=== PATIENT | male | born 1935 | race Caucasian/White ===

== ENCOUNTER 2021-06-13 20:40 | Inpatient (IN) ==
[2021-06-13] MEDS ORDERED: 0.9 % Sodium Chloride 1,000 ML IVC ONE (23:06)
[2021-06-13 23:33] LABS: Basophils % 0.2 %; Eosinophils % 0.2 %; Hemoglobin 11.9 g/dL (12.9-16.9); Immature Granulocytes % 0.5 % (0-4); Lymphocytes # 1.4 K/mcL (0.6-4.6); Lymphocytes % 10.5 %; Mean Corpuscular Hemoglobin 30.7 pg (28.0-33.3); Mean Corpuscular Volume 90.4 fL (83.0-100.0); Mean Platelet Volume 9.1 fL (9.4-12.4); Monocytes % 30.9 %; Neutrophils # 7.4 K/mcL (1.6-8.9); Platelet Count 213 K/mcL (140-400); Red Blood Count 3.87 M/mcL (4.19-5.50); Red Cell Distribution Width 13.2 % (11.5-14.5); Segmented Neutrophils % 57.7 %; White Blood Count 12.9 K/mcL (4.3-11.1)
[2021-06-13 23:35] LABS: Bilirubin,Urine Negative (Negative); Blood,Urine Large (Negative); Clarity,Urine Clear (Clear); Color,Urine Yellow (Yellow); Glucose,Urine (UA) Normal (Normal); Ketones,Urine Negative (Negative); Leukocyte Esterase,Urine Large (Negative); Nitrite,Urine Positive (Negative); Protein,Urine 100 mg/dL (Neg-Trace); Specific Gravity,Urine 1.015 (1.010-1.025); Urobilinogen,Urine Normal (Normal)
[2021-06-13 23:42] LABS: RBC,Urine TNTC per hpf (0-3); WBC,Urine TNTC per hpf (0-3)
[2021-06-13 23:43] LABS: Bacteria,Urine Present per hpf (None-Few)
[2021-06-13 23:52] LABS: Alanine Aminotransferase 49 Units/L (7-52); Albumin 3.4 g/dL (3.5-5.7); Albumin/Globulin Ratio 1.1 (1.1-2.2); Alkaline Phosphatase 54 Units/L (34-104); Aspartate Amino Transferase 43 Units/L (13-39); BUN/Creatinine Ratio 22 (6-26); Bilirubin,Direct 0.1 mg/dL (0.0-0.2); Bilirubin,Indirect 0.4 mg/dL (0.0-1.0); Bilirubin,Total 0.5 mg/dL (0.3-1.0); Blood Urea Nitrogen 27 mg/dL (8-23); Calcium 8.5 mg/dL (8.6-10.3); Carbon Dioxide 24 mEq/L (23-29); Chloride 100 mEq/L (98-107); Globulin 3.1 g/dL (2.4-3.5); Glucose 131 mg/dL (70-105); Osmolality,Calculated 283 (280-300); Potassium 3.8 mEq/L (3.5-5.1); Sodium 133 mEq/L (136-145); Total Protein 6.5 g/dL (6.4-8.9); Troponin I 0.03 ng/mL (< 0.04); eGFR For African Americans > 60 (> 60); eGFR For Non-African Americans 55 (> 60)
[2021-06-14 00:50] LABS: Platelet Estimate Normal (Normal)
[2021-06-14] MEDS ORDERED: Ondansetron 4 MG/2 ML VIAL IVP PRN (03:33)
[2021-06-14] MEDS ORDERED: Naloxone 0.4 MG/ML INJ IVP PRN (03:33)
[2021-06-14] MEDS: 0.9 % Sodium Chloride 1,000 ML IVC SCH ×2 (04:18→13:29)
[2021-06-14] MEDS: amLODIPine 5 MG TABLET PO SCH (08:56)
[2021-06-14] MEDS: lisinopriL 20 MG TABLET PO SCH ×2 (08:56→21:03)
[2021-06-14] MEDS: Acetaminophen 325 MG TABLET PO PRN (17:49)
[2021-06-14] MEDS: Melatonin 3 MG TABLET PO SCH (21:04)
[2021-06-15 07:38] LABS: Basophils % 0.3 %; Eosinophils # 0.1 K/mcL (0.0-0.6); Hematocrit 32.3 % (37.5-50.1); Hemoglobin 10.9 g/dL (12.9-16.9); Immature Granulocytes % 0.5 % (0-4); Lymphocytes # 1.5 K/mcL (0.6-4.6); Lymphocytes % 15.7 %; Mean Corpuscular HGB Conc 33.7 g/dL (31.6-35.5); Mean Corpuscular Hemoglobin 30.6 pg (28.0-33.3); Mean Corpuscular Volume 90.7 fL (83.0-100.0); Mean Platelet Volume 9.6 fL (9.4-12.4); Monocytes # 2.5 K/mcL (0.0-1.3); Monocytes % 24.9 %; Neutrophils # 5.7 K/mcL (1.6-8.9); Platelet Count 223 K/mcL (140-400); Red Blood Count 3.56 M/mcL (4.19-5.50); Red Cell Distribution Width 13.2 % (11.5-14.5); Segmented Neutrophils % 57.6 %; White Blood Count 9.8 K/mcL (4.3-11.1)
[2021-06-15] MEDS: lisinopriL 20 MG TABLET PO SCH ×2 (07:44→20:01)
[2021-06-15] MEDS: amLODIPine 5 MG TABLET PO SCH (07:44)
[2021-06-15 07:47] LABS: BUN/Creatinine Ratio 19 (6-26); Blood Urea Nitrogen 16 mg/dL (8-23); Calcium 7.9 mg/dL (8.6-10.3); Carbon Dioxide 22 mEq/L (23-29); Chloride 107 mEq/L (98-107); Glucose 100 mg/dL (70-105); Osmolality,Calculated 287 (280-300); Potassium 3.4 mEq/L (3.5-5.1); Sodium 138 mEq/L (136-145); eGFR For African Americans > 60 (> 60); eGFR For Non-African Americans > 60 (> 60)
[2021-06-15] MEDS: Acetaminophen 325 MG TABLET PO PRN (07:58)
[2021-06-15 08:30] LABS: Platelet Estimate Normal (Normal)
[2021-06-15] MEDS: Melatonin 3 MG TABLET PO SCH (20:01)
[2021-06-16 07:51] LABS: Eosinophils # 0.2 K/mcL (0.0-0.6); Hematocrit 32.4 % (37.5-50.1); Mean Corpuscular Hemoglobin 30.4 pg (28.0-33.3); Mean Corpuscular Volume 89.5 fL (83.0-100.0); Mean Platelet Volume 9.3 fL (9.4-12.4); Platelet Count 247 K/mcL (140-400); Red Blood Count 3.62 M/mcL (4.19-5.50); Red Cell Distribution Width 13.1 % (11.5-14.5); White Blood Count 7.5 K/mcL (4.3-11.1)
[2021-06-16] MEDS: amLODIPine 5 MG TABLET PO SCH (07:53)
[2021-06-16] MEDS: lisinopriL 20 MG TABLET PO SCH (07:53)
[2021-06-16 08:12] LABS: BUN/Creatinine Ratio 18 (6-26); Blood Urea Nitrogen 14 mg/dL (8-23); Calcium 8.4 mg/dL (8.6-10.3); Carbon Dioxide 24 mEq/L (23-29); Chloride 107 mEq/L (98-107); Glucose 93 mg/dL (70-105); Osmolality,Calculated 290 (280-300); Potassium 3.7 mEq/L (3.5-5.1); Sodium 140 mEq/L (136-145); eGFR For African Americans > 60 (> 60); eGFR For Non-African Americans > 60 (> 60)
[2021-06-16 09:32] LABS: Basophils # 0.2 K/mcL (0.0-0.2); Lymphocytes # 1.2 K/mcL (0.6-4.6); Monocytes # 1.1 K/mcL (0.0-1.3); Platelet Estimate Normal (Normal)
[2021-06-16 11:04] VITALS: BP 109/57; PULSE 65; RESP 18; TEMP 98.3; O2SAT 97
== END 2021-06-16 14:50 | disposition home or self-care (01) | DRG 700 ==
LOC: INPPIK 20:40 → EMEROOPIK 20:40 → INPPIK 06-14 02:55
PROVIDERS: ADMIT Family Medicine; ATTEND Family Medicine

== ENCOUNTER 2021-07-04 10:15 | Inpatient (IN) ==
[2021-07-04] MEDS ORDERED: Ondansetron ODT 4 MG TAB.RAPDIS SL PRN (16:44)
[2021-07-04] MEDS ORDERED: Acetaminophen 325 MG TABLET PO PRN (16:44)
[2021-07-04] MEDS ORDERED: Warfarin perPT PO PRN (18:00)
[2021-07-04] MEDS ORDERED: *HR* Warfarin 2.5 MG TABLET PO ONE (18:00)
[2021-07-04] MEDS: Cholecalciferol (D-3) 1,000 UNIT (25MCG) TABLET PO SCH (21:59)
[2021-07-04] MEDS: Ascorbic Acid 500 MG TABLET PO SCH (22:00)
[2021-07-04] MEDS: Melatonin 3 MG TABLET PO SCH (22:02)
[2021-07-05 07:56] LABS: Basophils % 0.3 %; Eosinophils # 0.1 K/mcL (0.0-0.6); Hematocrit 27.9 % (37.5-50.1); Hemoglobin 9.3 g/dL (12.9-16.9); Immature Granulocytes % 0.7 % (0-4); Lymphocytes # 1.3 K/mcL (0.6-4.6); Lymphocytes % 19.3 %; Mean Corpuscular HGB Conc 33.3 g/dL (31.6-35.5); Mean Corpuscular Hemoglobin 30.4 pg (28.0-33.3); Mean Corpuscular Volume 91.2 fL (83.0-100.0); Mean Platelet Volume 9.7 fL (9.4-12.4); Monocytes # 1.4 K/mcL (0.0-1.3); Monocytes % 19.9 %; Platelet Count 228 K/mcL (140-400); Red Blood Count 3.06 M/mcL (4.19-5.50); Red Cell Distribution Width 14.5 % (11.5-14.5); Segmented Neutrophils % 58.8 %; White Blood Count 6.9 K/mcL (4.3-11.1)
[2021-07-05 08:11] LABS: BUN/Creatinine Ratio 18 (6-26); Blood Urea Nitrogen 15 mg/dL (8-23); Calcium 8.1 mg/dL (8.6-10.3); Carbon Dioxide 28 mEq/L (23-29); Chloride 107 mEq/L (98-107); Glucose 98 mg/dL (70-105); Osmolality,Calculated 295 (280-300); Potassium 3.5 mEq/L (3.5-5.1); Sodium 142 mEq/L (136-145); eGFR For African Americans > 60 (> 60); eGFR For Non-African Americans > 60 (> 60)
[2021-07-05] MEDS: amLODIPine 5 MG TABLET PO SCH (08:19)
[2021-07-05] MEDS: Aspirin Enteric Coated 81 MG Tablet PO SCH (08:19)
[2021-07-05] MEDS: Ascorbic Acid 500 MG TABLET PO SCH ×2 (08:19→21:53)
[2021-07-05] MEDS: UBIDECARENONE 100 MG PO SCH (08:20)
[2021-07-05] MEDS: Cholecalciferol (D-3) 1,000 UNIT (25MCG) TABLET PO SCH ×2 (08:20→21:53)
[2021-07-05] MEDS: VIT E PO SCH (08:20)
[2021-07-05] MEDS: LUTEIN PO SCH (08:20)
[2021-07-05] MEDS: levoFLOXacin 750 MG TABLET PO SCH (08:20)
[2021-07-05] MEDS: lisinopriL 20 MG TABLET PO SCH (08:20)
[2021-07-05] MEDS: VIT C PO SCH (08:20)
[2021-07-05] MEDS: OMEGA PO SCH (08:20)
[2021-07-05 08:25] LABS: INR 1.2; Prothrombin Time 13.4 Seconds (9.4-12.1)
[2021-07-05 09:32] LABS: Platelet Estimate Normal (Normal)
[2021-07-05] MEDS: Multivit/Ca/Min/Fe/FA 1 TAB TABLET PO SCH (11:55)
[2021-07-05] MEDS ORDERED: *HR* Heparin 5,000 UNIT/ML VIAL IVP ONE (17:31)
[2021-07-05] MEDS ORDERED: *HR* Heparin 5,000 UNIT/ML VIAL IVP PRN ×2 (17:31)
[2021-07-05] MEDS ORDERED: Heparin 25,000UNIT/250ML 1/2NS 25,000 UNIT/250 ML IV.SOLN IVC SCH (17:45)
[2021-07-05] MEDS ORDERED: *HR* Warfarin 3 MG TABLET PO ONE (18:00)
[2021-07-05 18:10] LABS: Hematocrit 30.7 % (37.5-50.1); Hemoglobin 10.2 g/dL (12.9-16.9); Mean Corpuscular HGB Conc 33.2 g/dL (31.6-35.5); Mean Corpuscular Hemoglobin 30.4 pg (28.0-33.3); Mean Corpuscular Volume 91.6 fL (83.0-100.0); Mean Platelet Volume 9.4 fL (9.4-12.4); Platelet Count 261 K/mcL (140-400); Red Blood Count 3.35 M/mcL (4.19-5.50); Red Cell Distribution Width 14.3 % (11.5-14.5); White Blood Count 7.4 K/mcL (4.3-11.1)
[2021-07-05 18:24] LABS: Heparin anti-factor XA UFH < 0.04 IU/mL (0.30-0.70)
[2021-07-05 18:25] LABS: INR 1.1; Prothrombin Time 12.7 Seconds (9.4-12.1)
[2021-07-05] MEDS: Melatonin 3 MG TABLET PO SCH (21:53)
[2021-07-05] MEDS: *HR* Heparin 5,000 UNIT/ML VIAL SQ SCH (21:57)
[2021-07-06] MEDS: *HR* Heparin 5,000 UNIT/ML VIAL SQ SCH ×3 (05:31→21:47)
[2021-07-06 07:47] LABS: Basophils % 0.5 %; Eosinophils # 0.1 K/mcL (0.0-0.6); Eosinophils % 1.2 %; Hematocrit 29.8 % (37.5-50.1); Hemoglobin 9.8 g/dL (12.9-16.9); Immature Granulocytes % 0.9 % (0-4); Lymphocytes # 1.3 K/mcL (0.6-4.6); Lymphocytes % 20.2 %; Mean Corpuscular HGB Conc 32.9 g/dL (31.6-35.5); Mean Corpuscular Hemoglobin 30.1 pg (28.0-33.3); Mean Corpuscular Volume 91.4 fL (83.0-100.0); Mean Platelet Volume 9.5 fL (9.4-12.4); Monocytes # 1.2 K/mcL (0.0-1.3); Monocytes % 17.9 %; Neutrophils # 3.9 K/mcL (1.6-8.9); Platelet Count 266 K/mcL (140-400); Red Blood Count 3.26 M/mcL (4.19-5.50); Red Cell Distribution Width 14.4 % (11.5-14.5); Segmented Neutrophils % 59.3 %; White Blood Count 6.5 K/mcL (4.3-11.1)
[2021-07-06 07:58] LABS: INR 1.2; Prothrombin Time 13.4 Seconds (9.4-12.1)
[2021-07-06 08:05] LABS: BUN/Creatinine Ratio 17 (6-26); Blood Urea Nitrogen 15 mg/dL (8-23); Calcium 8.3 mg/dL (8.6-10.3); Carbon Dioxide 28 mEq/L (23-29); Chloride 107 mEq/L (98-107); Glucose 102 mg/dL (70-105); Osmolality,Calculated 295 (280-300); Potassium 3.7 mEq/L (3.5-5.1); Sodium 142 mEq/L (136-145); eGFR For African Americans > 60 (> 60); eGFR For Non-African Americans > 60 (> 60)
[2021-07-06] MEDS: Ascorbic Acid 500 MG TABLET PO SCH ×2 (08:59→21:31)
[2021-07-06] MEDS: levoFLOXacin 750 MG TABLET PO SCH (08:59)
[2021-07-06] MEDS: amLODIPine 5 MG TABLET PO SCH (09:00)
[2021-07-06] MEDS: UBIDECARENONE 100 MG PO SCH (09:00)
[2021-07-06] MEDS: OMEGA PO SCH (09:00)
[2021-07-06] MEDS: Cholecalciferol (D-3) 1,000 UNIT (25MCG) TABLET PO SCH ×2 (09:00→21:30)
[2021-07-06] MEDS: lisinopriL 20 MG TABLET PO SCH (09:00)
[2021-07-06] MEDS: Aspirin Enteric Coated 81 MG Tablet PO SCH (09:00)
[2021-07-06] MEDS: LUTEIN PO SCH (09:00)
[2021-07-06] MEDS: VIT C PO SCH (09:00)
[2021-07-06] MEDS: VIT E PO SCH (09:00)
[2021-07-06] MEDS: Multivit/Ca/Min/Fe/FA 1 TAB TABLET PO SCH (12:02)
[2021-07-06] MEDS ORDERED: *HR* Warfarin 7.5 MG TABLET PO ONE (18:00)
[2021-07-06] MEDS: Melatonin 3 MG TABLET PO SCH (21:30)
[2021-07-07] MEDS: *HR* Heparin 5,000 UNIT/ML VIAL SQ SCH ×3 (06:06→21:46)
[2021-07-07 07:34] LABS: INR 1.3; Prothrombin Time 14.7 Seconds (9.4-12.1)
[2021-07-07] MEDS: Ascorbic Acid 500 MG TABLET PO SCH ×2 (08:12→21:37)
[2021-07-07] MEDS: amLODIPine 5 MG TABLET PO SCH (08:12)
[2021-07-07] MEDS: lisinopriL 20 MG TABLET PO SCH (08:12)
[2021-07-07] MEDS: levoFLOXacin 750 MG TABLET PO SCH (08:12)
[2021-07-07] MEDS: Cholecalciferol (D-3) 1,000 UNIT (25MCG) TABLET PO SCH ×2 (08:12→21:37)
[2021-07-07] MEDS: Aspirin Enteric Coated 81 MG Tablet PO SCH (08:12)
[2021-07-07] MEDS: VIT E PO SCH (08:14)
[2021-07-07] MEDS: OMEGA PO SCH (08:14)
[2021-07-07] MEDS: UBIDECARENONE 100 MG PO SCH (08:14)
[2021-07-07] MEDS: LUTEIN PO SCH (08:14)
[2021-07-07] MEDS: VIT C PO SCH (08:14)
[2021-07-07] MEDS: Hyoscyamine SL 0.125 MG TAB.SUBL SL SCH ×3 (12:14→21:37)
[2021-07-07] MEDS: Multivit/Ca/Min/Fe/FA 1 TAB TABLET PO SCH (12:30)
[2021-07-07] MEDS ORDERED: *HR* Warfarin 7.5 MG TABLET PO ONE (18:00)
[2021-07-07] MEDS: Melatonin 3 MG TABLET PO SCH (21:38)
[2021-07-08] MEDS: *HR* Heparin 5,000 UNIT/ML VIAL SQ SCH ×2 (06:18→13:00)
[2021-07-08] MEDS: Aspirin Enteric Coated 81 MG Tablet PO SCH (08:12)
[2021-07-08] MEDS: amLODIPine 5 MG TABLET PO SCH (08:12)
[2021-07-08] MEDS: levoFLOXacin 750 MG TABLET PO SCH (08:13)
[2021-07-08] MEDS: Ascorbic Acid 500 MG TABLET PO SCH ×2 (08:13→19:45)
[2021-07-08] MEDS: Hyoscyamine SL 0.125 MG TAB.SUBL SL SCH ×3 (08:14→19:45)
[2021-07-08] MEDS: lisinopriL 20 MG TABLET PO SCH (08:14)
[2021-07-08] MEDS: Cholecalciferol (D-3) 1,000 UNIT (25MCG) TABLET PO SCH ×2 (08:14→19:46)
[2021-07-08] MEDS: UBIDECARENONE 100 MG PO SCH (08:18)
[2021-07-08] MEDS: OMEGA PO SCH (08:18)
[2021-07-08] MEDS: VIT C PO SCH (08:18)
[2021-07-08] MEDS: VIT E PO SCH (08:18)
[2021-07-08] MEDS: LUTEIN PO SCH (08:18)
[2021-07-08 08:20] LABS: INR 1.4; Prothrombin Time 15.7 Seconds (9.4-12.1)
[2021-07-08 08:24] LABS: Hemoglobin 10.1 g/dL (12.9-16.9); Mean Corpuscular HGB Conc 32.6 g/dL (31.6-35.5); Mean Corpuscular Hemoglobin 29.8 pg (28.0-33.3); Mean Corpuscular Volume 91.4 fL (83.0-100.0); Mean Platelet Volume 9.6 fL (9.4-12.4); Platelet Count 295 K/mcL (140-400); Red Blood Count 3.39 M/mcL (4.19-5.50); Red Cell Distribution Width 14.5 % (11.5-14.5); White Blood Count 5.7 K/mcL (4.3-11.1)
[2021-07-08 08:33] LABS: BUN/Creatinine Ratio 17 (6-26); Blood Urea Nitrogen 15 mg/dL (8-23); Calcium 8.4 mg/dL (8.6-10.3); Carbon Dioxide 28 mEq/L (23-29); Chloride 106 mEq/L (98-107); Glucose 97 mg/dL (70-105); Osmolality,Calculated 291 (280-300); Potassium 3.5 mEq/L (3.5-5.1); Sodium 140 mEq/L (136-145); eGFR For African Americans > 60 (> 60); eGFR For Non-African Americans > 60 (> 60)
[2021-07-08] MEDS: Multivit/Ca/Min/Fe/FA 1 TAB TABLET PO SCH (13:00)
[2021-07-08] MEDS ORDERED: *HR* Warfarin 7.5 MG TABLET PO ONE (18:00)
[2021-07-08] MEDS: Apixaban 5 MG TABLET PO SCH (19:45)
[2021-07-08] MEDS: Melatonin 3 MG TABLET PO SCH (22:00)
[2021-07-09 07:45] LABS: INR 1.5; Prothrombin Time 16.7 Seconds (9.4-12.1)
[2021-07-09] MEDS: Aspirin Enteric Coated 81 MG Tablet PO SCH (08:35)
[2021-07-09] MEDS: Ascorbic Acid 500 MG TABLET PO SCH ×2 (08:35→20:12)
[2021-07-09] MEDS: lisinopriL 20 MG TABLET PO SCH (08:35)
[2021-07-09] MEDS: UBIDECARENONE 100 MG PO SCH (08:36)
[2021-07-09] MEDS: OMEGA PO SCH (08:36)
[2021-07-09] MEDS: VIT C PO SCH (08:36)
[2021-07-09] MEDS: VIT E PO SCH (08:36)
[2021-07-09] MEDS: amLODIPine 5 MG TABLET PO SCH (08:36)
[2021-07-09] MEDS: Hyoscyamine SL 0.125 MG TAB.SUBL SL SCH ×3 (08:36→20:12)
[2021-07-09] MEDS: Cholecalciferol (D-3) 1,000 UNIT (25MCG) TABLET PO SCH ×2 (08:36→20:13)
[2021-07-09] MEDS: LUTEIN PO SCH (08:36)
[2021-07-09] MEDS: Apixaban 5 MG TABLET PO SCH ×2 (08:36→21:51)
[2021-07-09] MEDS: levoFLOXacin 750 MG TABLET PO SCH (08:36)
[2021-07-09] MEDS: Docusate Oral Soln 100 MG/10 ML UDC PO SCH (09:55)
[2021-07-09] MEDS: Multivit/Ca/Min/Fe/FA 1 TAB TABLET PO SCH (11:54)
[2021-07-09 19:13] VITALS: O2SAT 97
[2021-07-09] MEDS: Melatonin 3 MG TABLET PO SCH (21:45)
[2021-07-10] MEDS: Docusate Oral Soln 100 MG/10 ML UDC PO SCH (08:14)
[2021-07-10] MEDS: Apixaban 5 MG TABLET PO SCH (08:14)
[2021-07-10] MEDS: amLODIPine 5 MG TABLET PO SCH (08:15)
[2021-07-10] MEDS: Hyoscyamine SL 0.125 MG TAB.SUBL SL SCH (08:15)
[2021-07-10] MEDS: Aspirin Enteric Coated 81 MG Tablet PO SCH (08:15)
[2021-07-10] MEDS: levoFLOXacin 750 MG TABLET PO SCH (08:15)
[2021-07-10] MEDS: UBIDECARENONE 100 MG PO SCH (08:15)
[2021-07-10] MEDS: Ascorbic Acid 500 MG TABLET PO SCH (08:15)
[2021-07-10] MEDS: lisinopriL 20 MG TABLET PO SCH (08:15)
[2021-07-10] MEDS: Cholecalciferol (D-3) 1,000 UNIT (25MCG) TABLET PO SCH (08:15)
[2021-07-10] MEDS: VIT C PO SCH (08:16)
[2021-07-10] MEDS: LUTEIN PO SCH (08:16)
[2021-07-10] MEDS: VIT E PO SCH (08:16)
[2021-07-10] MEDS: OMEGA PO SCH (08:16)
[2021-07-10 09:22] VITALS: BP 146/78; PULSE 74; RESP 18; TEMP 97.7
== END 2021-07-10 12:35 | disposition home health service (06) | DRG 945 ==
LOC: INPPIK 16:37
PROVIDERS: ADMIT Family Medicine; ATTEND Family Medicine

== ENCOUNTER 2022-08-03 19:09 | Inpatient (IN) ==
[2022-08-03] MEDS ORDERED: 0.9 % Sodium Chloride 1,000 ML IV ONE (19:25)
[2022-08-03 19:39] LABS: Bilirubin,Urine Negative (Negative); Blood,Urine Moderate (Negative); Clarity,Urine Slightly Cloudy (Clear); Color,Urine Yellow (Yellow); Glucose,Urine (UA) Normal (Normal); Ketones,Urine Negative (Negative); Leukocyte Esterase,Urine Moderate (Negative); Nitrite,Urine Negative (Negative); Protein,Urine 30 mg/dL (Neg-Trace); Specific Gravity,Urine 1.025 (1.010-1.025); Urobilinogen,Urine Normal (Normal)
[2022-08-03 19:50] LABS: RBC,Urine 30-50 per hpf (0-3)
[2022-08-03 19:51] LABS: Bacteria,Urine Moderate per hpf (None-Few); Mucus,Urine Few per lpf (None-Few); Squamous Epithelial Cell,Urine Few per hpf (None-Few); WBC,Urine TNTC per hpf (0-3)
[2022-08-03 19:52] LABS: Hyaline Casts,Urine Few per lpf (None Seen)
[2022-08-03] MEDS ORDERED: levoFLOXacin 750 MG/150 ML 750 MG/150 ML BAG IVPB STA (19:54)
[2022-08-03 19:57] LABS: Basophils % 0.2 %; Eosinophils % 0.1 %; Hematocrit 38.9 % (37.5-50.1); Hemoglobin 12.8 g/dL (12.9-16.9); Immature Granulocytes % 0.4 % (0-4); Lymphocytes # 0.9 K/mcL (0.6-4.6); Lymphocytes % 6.7 %; Mean Corpuscular HGB Conc 32.9 g/dL (31.6-35.5); Mean Corpuscular Volume 91.1 fL (83.0-100.0); Mean Platelet Volume 9.7 fL (9.4-12.4); Monocytes # 4.5 K/mcL (0.0-1.3); Neutrophils # 8.4 K/mcL (1.6-8.9); Platelet Count 139 K/mcL (140-400); Red Blood Count 4.27 M/mcL (4.19-5.50); Red Cell Distribution Width 14.6 % (11.5-14.5); Segmented Neutrophils % 60.6 %; White Blood Count 13.9 K/mcL (4.3-11.1)
[2022-08-03 20:06] LABS: INR 1.4; Prothrombin Time 15.6 Seconds (9.4-12.1)
[2022-08-03 20:08] LABS: Activated Partial Thrombo Time 35.2 Seconds (26.0-36.0)
[2022-08-03 20:13] LABS: Albumin 4.1 g/dL (3.5-5.7); Albumin/Globulin Ratio 1.1 (1.1-2.2); Bilirubin,Total 0.7 mg/dL (0.3-1.0); Calcium 9.2 mg/dL (8.6-10.3); Globulin 3.7 g/dL (2.4-3.5); Magnesium 1.5 mg/dL (1.6-2.6); Phosphorous 1.8 mg/dL (2.7-4.5); Potassium 3.6 mEq/L (3.5-5.1); Total Protein 7.8 g/dL (6.4-8.9)
[2022-08-03 20:17] LABS: Troponin I 0.03 ng/mL (< 0.04)
[2022-08-03] MEDS ORDERED: Naloxone 0.4 MG/ML INJ IVP PRN (21:48)
[2022-08-03] MEDS ORDERED: Ondansetron 4 MG/2 ML VIAL IVP PRN (21:48)
[2022-08-03] MEDS: Acetaminophen 325 MG TABLET PO PRN (22:30)
[2022-08-03] MEDS: *HR* Ticagrelor 90 MG TABLET PO SCH (23:43)
[2022-08-04 08:00] LABS: Basophils % 0.2 %; Eosinophils % 0.1 %; Hematocrit 34.2 % (37.5-50.1); Hemoglobin 11.1 g/dL (12.9-16.9); Immature Granulocytes % 0.3 % (0-4); Lymphocytes # 1.3 K/mcL (0.6-4.6); Mean Corpuscular HGB Conc 32.5 g/dL (31.6-35.5); Mean Corpuscular Hemoglobin 29.8 pg (28.0-33.3); Mean Corpuscular Volume 91.7 fL (83.0-100.0); Mean Platelet Volume 9.7 fL (9.4-12.4); Monocytes % 43.3 %; Neutrophils # 6.1 K/mcL (1.6-8.9); Platelet Count 126 K/mcL (140-400); Red Blood Count 3.73 M/mcL (4.19-5.50); Red Cell Distribution Width 14.6 % (11.5-14.5); Segmented Neutrophils % 46.1 %; White Blood Count 13.3 K/mcL (4.3-11.1)
[2022-08-04 08:10] LABS: Monocytes # 5.8 K/mcL (0.0-1.3)
[2022-08-04 08:20] LABS: Calcium 8.5 mg/dL (8.6-10.3); Magnesium 1.8 mg/dL (1.6-2.6); Phosphorous 1.9 mg/dL (2.7-4.5); Potassium 3.7 mEq/L (3.5-5.1)
[2022-08-04] MEDS: Acetaminophen 325 MG TABLET PO PRN ×2 (08:29→18:16)
[2022-08-04] MEDS: amLODIPine 5 MG TABLET PO SCH (08:30)
[2022-08-04] MEDS: Nitrofurantoin (BID) 100 MG CAPSULE PO SCH ×2 (08:30→16:38)
[2022-08-04] MEDS: Loratadine 10 MG TABLET PO SCH (08:30)
[2022-08-04] MEDS: Apixaban 5 MG TABLET PO SCH ×2 (08:30→20:25)
[2022-08-04] MEDS: *HR* Ticagrelor 90 MG TABLET PO SCH ×2 (08:30→20:24)
[2022-08-04] MEDS: Ascorbic Acid 500 MG TABLET PO SCH ×2 (17:54→20:25)
[2022-08-04] MEDS: Multivit/Ca/Min/Fe/FA 1 TAB TABLET PO SCH (17:54)
[2022-08-04] MEDS: Cholecalciferol (D-3) 1,000 UNIT (25MCG) TABLET PO SCH ×2 (17:55→20:25)
[2022-08-04] MEDS: Melatonin 3 MG TABLET PO PRN (20:25)
[2022-08-04] MEDS ORDERED: levoFLOXacin 750 MG/150 ML 750 MG/150 ML BAG IVPB SCH (21:00)
[2022-08-05 07:08] LABS: Basophils % 0.3 %; Eosinophils # 0.1 K/mcL (0.0-0.6); Eosinophils % 0.7 %; Hematocrit 35.9 % (37.5-50.1); Hemoglobin 11.6 g/dL (12.9-16.9); Immature Granulocytes % 1.1 % (0-4); Lymphocytes # 1.6 K/mcL (0.6-4.6); Lymphocytes % 10.7 %; Mean Corpuscular HGB Conc 32.3 g/dL (31.6-35.5); Mean Corpuscular Hemoglobin 29.5 pg (28.0-33.3); Mean Corpuscular Volume 91.3 fL (83.0-100.0); Mean Platelet Volume 10.1 fL (9.4-12.4); Monocytes # 4.6 K/mcL (0.0-1.3); Monocytes % 31.5 %; Neutrophils # 8.1 K/mcL (1.6-8.9); Platelet Count 126 K/mcL (140-400); Red Blood Count 3.93 M/mcL (4.19-5.50); Red Cell Distribution Width 14.5 % (11.5-14.5); Segmented Neutrophils % 55.7 %; White Blood Count 14.5 K/mcL (4.3-11.1)
[2022-08-05 07:30] LABS: Calcium 8.8 mg/dL (8.6-10.3); Magnesium 1.8 mg/dL (1.6-2.6); Potassium 3.2 mEq/L (3.5-5.1)
[2022-08-05 08:55] LABS: Platelet Estimate Slight Decrease (Normal)
[2022-08-05] MEDS: Acetaminophen 325 MG TABLET PO PRN (09:08)
[2022-08-05] MEDS: amLODIPine 5 MG TABLET PO SCH (09:08)
[2022-08-05] MEDS: Cholecalciferol (D-3) 1,000 UNIT (25MCG) TABLET PO SCH ×2 (09:09→21:02)
[2022-08-05] MEDS: *HR* Ticagrelor 90 MG TABLET PO SCH ×2 (09:09→21:02)
[2022-08-05] MEDS: Ascorbic Acid 500 MG TABLET PO SCH ×2 (09:09→21:01)
[2022-08-05] MEDS: Nitrofurantoin (BID) 100 MG CAPSULE PO SCH ×2 (09:09→17:29)
[2022-08-05] MEDS: Multivit/Ca/Min/Fe/FA 1 TAB TABLET PO SCH (09:10)
[2022-08-05] MEDS: UBIDECARENONE 100 MG PO SCH (09:10)
[2022-08-05] MEDS: Apixaban 5 MG TABLET PO SCH ×2 (09:10→21:02)
[2022-08-05] MEDS: Loratadine 10 MG TABLET PO SCH (09:10)
[2022-08-05] MEDS ORDERED: levoFLOXacin 750 MG/150 ML 750 MG/150 ML BAG IVPB SCH (21:00)
[2022-08-05] MEDS: Melatonin 3 MG TABLET PO PRN (21:00)
[2022-08-06] MEDS: Acetaminophen 325 MG TABLET PO PRN (01:05)
[2022-08-06 07:50] LABS: Basophils % 0.2 %; Eosinophils # 0.1 K/mcL (0.0-0.6); Eosinophils % 1.4 %; Hematocrit 33.3 % (37.5-50.1); Hemoglobin 10.9 g/dL (12.9-16.9); Immature Granulocytes % 0.8 % (0-4); Lymphocytes # 1.1 K/mcL (0.6-4.6); Lymphocytes % 12.4 %; Mean Corpuscular HGB Conc 32.7 g/dL (31.6-35.5); Mean Corpuscular Hemoglobin 29.8 pg (28.0-33.3); Monocytes # 2.5 K/mcL (0.0-1.3); Monocytes % 29.5 %; Neutrophils # 4.7 K/mcL (1.6-8.9); Platelet Count 128 K/mcL (140-400); Red Blood Count 3.66 M/mcL (4.19-5.50); Red Cell Distribution Width 14.5 % (11.5-14.5); Segmented Neutrophils % 55.7 %; White Blood Count 8.5 K/mcL (4.3-11.1)
[2022-08-06 08:19] LABS: Calcium 8.6 mg/dL (8.6-10.3); Magnesium 1.9 mg/dL (1.6-2.6); Potassium 3.7 mEq/L (3.5-5.1)
[2022-08-06 08:47] LABS: Platelet Estimate Slight Decrease (Normal)
[2022-08-06] MEDS: amLODIPine 5 MG TABLET PO SCH (10:09)
[2022-08-06] MEDS: Multivit/Ca/Min/Fe/FA 1 TAB TABLET PO SCH (10:09)
[2022-08-06] MEDS: *HR* Ticagrelor 90 MG TABLET PO SCH ×2 (10:09→21:45)
[2022-08-06] MEDS: Nitrofurantoin (BID) 100 MG CAPSULE PO SCH (10:09)
[2022-08-06] MEDS: Ascorbic Acid 500 MG TABLET PO SCH ×2 (10:09→21:45)
[2022-08-06] MEDS: Apixaban 5 MG TABLET PO SCH ×2 (10:09→21:45)
[2022-08-06] MEDS: Loratadine 10 MG TABLET PO SCH (10:09)
[2022-08-06] MEDS: Cholecalciferol (D-3) 1,000 UNIT (25MCG) TABLET PO SCH ×2 (10:10→21:45)
[2022-08-06] MEDS: UBIDECARENONE 100 MG PO SCH (10:17)
[2022-08-06] MEDS: Melatonin 3 MG TABLET PO PRN (21:45)
[2022-08-07 08:05] LABS: Basophils % 0.1 %; Eosinophils # 0.1 K/mcL (0.0-0.6); Eosinophils % 1.1 %; Hematocrit 33.3 % (37.5-50.1); Hemoglobin 10.8 g/dL (12.9-16.9); Immature Granulocytes % 6.7 % (0-4); Lymphocytes # 1.4 K/mcL (0.6-4.6); Lymphocytes % 17.3 %; Mean Corpuscular HGB Conc 32.4 g/dL (31.6-35.5); Mean Corpuscular Hemoglobin 29.6 pg (28.0-33.3); Mean Corpuscular Volume 91.2 fL (83.0-100.0); Mean Platelet Volume 10.1 fL (9.4-12.4); Monocytes # 1.8 K/mcL (0.0-1.3); Monocytes % 22.3 %; Neutrophils # 4.1 K/mcL (1.6-8.9); Platelet Count 153 K/mcL (140-400); Red Blood Count 3.65 M/mcL (4.19-5.50); Red Cell Distribution Width 14.5 % (11.5-14.5); Segmented Neutrophils % 52.5 %; White Blood Count 7.9 K/mcL (4.3-11.1)
[2022-08-07 08:29] LABS: Calcium 8.8 mg/dL (8.6-10.3); Magnesium 1.8 mg/dL (1.6-2.6); Potassium 3.3 mEq/L (3.5-5.1)
[2022-08-07] MEDS: Furosemide 20 MG TABLET PO SCH (10:08)
[2022-08-07] MEDS: Cholecalciferol (D-3) 1,000 UNIT (25MCG) TABLET PO SCH ×2 (10:08→21:14)
[2022-08-07] MEDS: *HR* Ticagrelor 90 MG TABLET PO SCH ×2 (10:09→21:14)
[2022-08-07] MEDS: amLODIPine 5 MG TABLET PO SCH (10:09)
[2022-08-07] MEDS: Loratadine 10 MG TABLET PO SCH (10:09)
[2022-08-07] MEDS: Multivit/Ca/Min/Fe/FA 1 TAB TABLET PO SCH (10:09)
[2022-08-07] MEDS: Apixaban 5 MG TABLET PO SCH ×2 (10:09→21:14)
[2022-08-07] MEDS: Ascorbic Acid 500 MG TABLET PO SCH ×2 (10:09→21:14)
[2022-08-07] MEDS: UBIDECARENONE 100 MG PO SCH (10:10)
[2022-08-07 11:12] LABS: Platelet Estimate Normal (Normal)
[2022-08-07] MEDS: Acetaminophen 325 MG TABLET PO PRN (21:18)
[2022-08-07] MEDS: Melatonin 3 MG TABLET PO PRN (21:20)
[2022-08-08 04:30] VITALS: O2SAT 95
[2022-08-08 07:43] VITALS: BP 148/70; PULSE 59; RESP 17; TEMP 97.8
[2022-08-08 08:13] LABS: Basophils % 0.3 %; Eosinophils # 0.1 K/mcL (0.0-0.6); Eosinophils % 2.1 %; Hematocrit 34.2 % (37.5-50.1); Hemoglobin 11.1 g/dL (12.9-16.9); Immature Granulocytes % 0.5 % (0-4); Lymphocytes # 1.5 K/mcL (0.6-4.6); Lymphocytes % 26.2 %; Mean Corpuscular HGB Conc 32.5 g/dL (31.6-35.5); Mean Corpuscular Hemoglobin 29.4 pg (28.0-33.3); Mean Corpuscular Volume 90.7 fL (83.0-100.0); Mean Platelet Volume 9.5 fL (9.4-12.4); Monocytes # 1.3 K/mcL (0.0-1.3); Monocytes % 22.9 %; Neutrophils # 2.7 K/mcL (1.6-8.9); Platelet Count 180 K/mcL (140-400); Red Blood Count 3.77 M/mcL (4.19-5.50); Red Cell Distribution Width 14.4 % (11.5-14.5); White Blood Count 5.7 K/mcL (4.3-11.1)
[2022-08-08 08:33] LABS: Calcium 8.7 mg/dL (8.6-10.3); Potassium 3.3 mEq/L (3.5-5.1)
[2022-08-08] MEDS: UBIDECARENONE 100 MG PO SCH (08:42)
[2022-08-08] MEDS: amLODIPine 5 MG TABLET PO SCH (08:43)
[2022-08-08] MEDS: Ascorbic Acid 500 MG TABLET PO SCH (08:43)
[2022-08-08] MEDS: Apixaban 5 MG TABLET PO SCH (08:43)
[2022-08-08] MEDS: *HR* Ticagrelor 90 MG TABLET PO SCH (08:44)
[2022-08-08] MEDS: Cholecalciferol (D-3) 1,000 UNIT (25MCG) TABLET PO SCH (08:44)
[2022-08-08] MEDS: Multivit/Ca/Min/Fe/FA 1 TAB TABLET PO SCH (08:44)
[2022-08-08] MEDS: Loratadine 10 MG TABLET PO SCH (08:44)
[2022-08-08] MEDS: Furosemide 20 MG TABLET PO SCH (08:45)
[2022-08-08 09:13] LABS: Anisocytosis 1+ (Not Present); Platelet Estimate Normal (Normal)
== END 2022-08-08 12:28 | disposition other institution (70) | DRG 690 ==
LOC: INPPIK 19:09 → EMEROOPIK 19:09 → SUATTDRO 22:14 → INPPIK 22:44
PROVIDERS: ADMIT Internal Medicine; ATTEND Internal Medicine

== ENCOUNTER 2022-08-08 11:10 | Inpatient (IN) ==
[2022-08-08] MEDS ORDERED: Acetaminophen 325 MG TABLET PO PRN (12:52)
[2022-08-08] MEDS: Apixaban 5 MG TABLET PO SCH (20:58)
[2022-08-08] MEDS: *HR* Ticagrelor 90 MG TABLET PO SCH (20:58)
[2022-08-08] MEDS: Cholecalciferol (D-3) 1,000 UNIT (25MCG) TABLET PO SCH (20:58)
[2022-08-08] MEDS: Ascorbic Acid 500 MG TABLET PO SCH (20:58)
[2022-08-08] MEDS ORDERED: Benzonatate 100 MG CAPSULE PO PRN (22:08)
[2022-08-09 07:36] LABS: Basophils % 0.3 %; Eosinophils # 0.1 K/mcL (0.0-0.6); Eosinophils % 1.7 %; Hemoglobin 10.5 g/dL (12.9-16.9); Immature Granulocytes % 0.3 % (0-4); Lymphocytes # 1.5 K/mcL (0.6-4.6); Lymphocytes % 26.8 %; Mean Corpuscular HGB Conc 32.8 g/dL (31.6-35.5); Mean Corpuscular Hemoglobin 29.8 pg (28.0-33.3); Mean Corpuscular Volume 90.9 fL (83.0-100.0); Mean Platelet Volume 9.5 fL (9.4-12.4); Monocytes # 1.3 K/mcL (0.0-1.3); Monocytes % 23.1 %; Neutrophils # 2.7 K/mcL (1.6-8.9); Platelet Count 203 K/mcL (140-400); Red Blood Count 3.52 M/mcL (4.19-5.50); Red Cell Distribution Width 14.4 % (11.5-14.5); Segmented Neutrophils % 47.8 %; White Blood Count 5.8 K/mcL (4.3-11.1)
[2022-08-09 07:50] LABS: Calcium 8.5 mg/dL (8.6-10.3); Potassium 3.5 mEq/L (3.5-5.1)
[2022-08-09] MEDS ORDERED: NON-FORMULARY MEDICATION 1 EACH EACH (Ubidecarenone [Co Q-10] 100 MG Capsule) PO SCH (09:00)
[2022-08-09] MEDS: Loratadine 10 MG TABLET PO SCH (09:30)
[2022-08-09] MEDS: Multivit/Ca/Min/Fe/FA 1 TAB TABLET PO SCH (09:31)
[2022-08-09] MEDS: Ascorbic Acid 500 MG TABLET PO SCH ×2 (09:31→21:27)
[2022-08-09] MEDS: amLODIPine 5 MG TABLET PO SCH (09:31)
[2022-08-09] MEDS: Cholecalciferol (D-3) 1,000 UNIT (25MCG) TABLET PO SCH ×2 (09:31→21:27)
[2022-08-09] MEDS: Apixaban 5 MG TABLET PO SCH ×2 (09:32→21:27)
[2022-08-09] MEDS: *HR* Ticagrelor 90 MG TABLET PO SCH ×2 (09:32→21:27)
[2022-08-09] MEDS: Furosemide 20 MG TABLET PO SCH (09:32)
[2022-08-09] MEDS: GuaiFENesin Liq 200 MG/10 ML UDC GTUBE PRN (09:39)
[2022-08-10] MEDS: Apixaban 5 MG TABLET PO SCH ×2 (09:28→20:38)
[2022-08-10] MEDS: *HR* Ticagrelor 90 MG TABLET PO SCH ×2 (09:28→20:38)
[2022-08-10] MEDS: Ascorbic Acid 500 MG TABLET PO SCH ×2 (09:28→20:38)
[2022-08-10] MEDS: Cholecalciferol (D-3) 1,000 UNIT (25MCG) TABLET PO SCH ×2 (09:28→20:38)
[2022-08-10] MEDS: Loratadine 10 MG TABLET PO SCH (09:29)
[2022-08-10] MEDS: Furosemide 20 MG TABLET PO SCH (09:29)
[2022-08-10] MEDS: amLODIPine 5 MG TABLET PO SCH (09:29)
[2022-08-10] MEDS: Multivit/Ca/Min/Fe/FA 1 TAB TABLET PO SCH (09:29)
[2022-08-10] MEDS: GuaiFENesin Liq 200 MG/10 ML UDC GTUBE PRN (09:34)
[2022-08-10 18:59] VITALS: TEMP 97.9; O2SAT 97
[2022-08-11 06:55] VITALS: BP 132/70; PULSE 56; RESP 16
[2022-08-11] MEDS: *HR* Ticagrelor 90 MG TABLET PO SCH (10:07)
[2022-08-11] MEDS: Cholecalciferol (D-3) 1,000 UNIT (25MCG) TABLET PO SCH (10:07)
[2022-08-11] MEDS: Loratadine 10 MG TABLET PO SCH (10:07)
[2022-08-11] MEDS: Multivit/Ca/Min/Fe/FA 1 TAB TABLET PO SCH (10:08)
[2022-08-11] MEDS: amLODIPine 5 MG TABLET PO SCH (10:08)
[2022-08-11] MEDS: Ascorbic Acid 500 MG TABLET PO SCH (10:08)
[2022-08-11] MEDS: Furosemide 20 MG TABLET PO SCH (10:08)
[2022-08-11] MEDS: Apixaban 5 MG TABLET PO SCH (10:08)
[2022-08-11] MEDS: GuaiFENesin Liq 200 MG/10 ML UDC GTUBE PRN (10:16)
[2022-08-11] MEDS ORDERED: Flu Vac QV 22-23 (6MOS UP)/PF 0.5 ML SYRINGE IM ONE (12:19)
== END 2022-08-11 12:52 | disposition home or self-care (01) | DRG 690 ==
LOC: SUATTDRO 12:30 → INPPIK 12:30
PROVIDERS: ADMIT Internal Medicine; ATTEND Family Medicine